=== PATIENT | female | born 2000 | race Caucasian/White ===

== ENCOUNTER 2020-10-22 13:08 | Emergency (ER) | payer BC, SELFPAY ==
--- NOTE | 2020-10-22 13:14 | ED.GENADULT ---
HPI - General Adult General Chief complaint: Unspecified Stated complaint: HEADACHE/TREMOR IN R ARM/RIB & LOW ABD PAIN Time Seen by Provider: 10/22/20 13:14 Source: patient Mode of arrival: ambulatory Limitations: no limitations History of Present Illness HPI narrative: 20-year-old female patient presents to the [facility] with complaints of a headache and abdominal pain for the past week. Patient states that the headache starts in the base of the skull and moves up toward the right side of the forehead. Patient states that she has been taking ibuprofen for this and it has relieved some of it at times. 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 Patient denies any vision changes, lightheadedness or dizziness. Pt also c/o lower abdominal pain that has bee constant for the past week, with epigastric pain and nausea after eating. Pt rates her pain 6/10 at this time. Patient denies any fevers, vomiting or diarrhea. Patient states she still does have her appendix and her gallbladder. Patient states last normal bowel movement was yesterday. Related Data Home Medications Medication Instructions Recorded Confirmed No Home Medications 10/22/20 10/22/20 Allergies Allergy/AdvReac Type Severity Reaction Status Date / Time No Known Allergies Allergy Verified 10/22/20 13:20 Review of Systems Review of Systems: Narrative: CONSTITUTIONAL: Denies fever, chills, or sweats. EYES: Denies visual changes, redness, or discharge. ENT: Denies rhinorrhea, congestion, sore throat, or otalgia. CARDIOVASCULAR: Denies chest pain, palpitations, or edema. RESPIRATORY: Denies cough or dyspnea. GASTROINTESTINAL: Positive lower abdominal pain x1 week, positive epigastric pain and nausea, denies vomiting, or diarrhea. GENITOURINARY: Denies dysuria or hematuria. SKIN: Denies rash or itching. MUSCULOSKELETAL: Denies back pain, joint pain, or myalgia. NEUROLOGIC: Positive intermittent headache x1 week, denies numbness, or weakness. PSYCHIATRIC: Denies anxiety or depression. PMFSH Comments At the time of my signature I agree with nursing past medical history, surgical, social, and family history. There is no relevant family history pertinent to the presenting complaint. Exam Narrative: Exam Narrative: GENERAL: Well-appearing, well-nourished, and in no acute distress. HEAD: Normocephalic, atraumatic. EYES: PERRLA and EOMI. ENT: Nares clear, no rhinorrhea or epistaxis. Mucous membranes moist. NECK: Supple. No lymphadenopathy CHEST: Clear to auscultation. No respiratory distress. HEART: Regular rate and rhythm. No murmur heard. Normal peripheral pulses. ABDOMEN: Soft, flat, nondistended. No guarding, rebound tenderness, or rigid. Patient has tenderness noted to the right upper quadrant, right lower quadrant and left lower quadrant on palpitation. No pulsatilla masses. Hyperactive bowel sounds present in all four quadrants. No organomegaly. Negative Chauhan?s sign. No periumbicial tenderness. No Supra public tenderness or distension. Good femoral pulses bilaterally. No hernia noted. No scars or surface trauma. EXTREMITIES: Normal range of motion. No edema. SKIN: Warm, dry, no rash. NEURO: Alert and oriented x4, GCS 15. Cranial nerves II through XII grossly intact. No focal neurological deficits. Normal muscle strength and tone. Normal deep tendon reflexes. Negative Babinski, normal finger to nose coordination he had normal heel to reyes glide. Speech is clear. Normal gait. Negative Romberg and no pronator drift Course Vital Signs Vital signs: Vital Signs Temperature 37.7 C H 10/22/20 13:21 Pulse Rate 102 H 10/22/20 13:21 Respiratory Rate 20 10/22/20 13:21 Blood Pressure 124/75 10/22/20 13:21 Pulse Oximetry 100 10/22/20 13:21 Temperature 37.7 C H 10/22/20 13:21 Pulse Rate 102 H 10/22/20 13:21 Respiratory Rate 20 10/22/20 13:21 Blood Pressure
[2020-10-22 13:21] VITALS: BP 124/75; PULSE 102; RESP 20; TEMP 37.7; O2SAT 100
== END 2020-10-22 14:10 | disposition short-term general hospital (02) ==
PROVIDERS: Emergency Provider Nurse Practitioner Family
DX: R10.31 Right lower quadrant pain (principal); R10.32 Left lower quadrant pain; R10.11 Right upper quadrant pain; G44.209 Tension-type headache, unspecified, not intractable; Z20.822 Contact with and (suspected) exposure to COVID-19
CPT/HCPCS: 87426; 99213; C9803; G0463

== ENCOUNTER 2020-10-22 14:14 | Emergency (ER) | payer BC, MEDICAID, SELFPAY ==
--- NOTE | ~2020-10-22 | CT_ITS ---
EXAMINATION: CT abdomen pelvis w con INDICATION: Right lower quadrant pain TECHNIQUE: Computed tomographic images of the abdomen and pelvis were obtained after the administrati on of 100 cc of Omnipaque 350 intravenous contrast. The dose-length product (DLP) was 230.64 mGy-cm. Automated exposure control and iterative reconstruction technique were employed. COMPARISON: None available FINDINGS: The lung bases are clear. The heart size is normal. The liver, spleen, pancreas, gallbladde r, and adrenal glands are normal. The right kidney is unremarkable. A 7 mm hypoattenuating lesion of the left mid kidney is too small to characterize but likely represents a cyst. No pathologically enla rged abdominal or pelvic lymph nodes are identified. The appendix is difficult to discretely identifi ed however, no dilated tubular structure is identified in the pelvis. There is a corpus luteum of the right ovary. A small volume of free fluid is present in the pelvis. IMPRESSION: 1. No CT correlate for the patient's symptoms. Although the appendix is not definitely identified, no dilated appendix is seen. 2. Small volume of free fluid in the pelvis which could be physiologic or due to ruptured ovarian cys t. Reviewed, dictated and finalized at location A. EXPANDER IMPRESSION: 1. No CT correlate for the patient's symptoms. Although the appendix is not def initely identified, no dilated appendix is seen. 2. Small volume of free fluid in the pelvis which could be physiologic or due t o ruptured ovarian cyst.
[2020-10-22 14:17] VITALS: BP 117/68; PULSE 92; RESP 18; TEMP 36.9; O2SAT 100
[2020-10-22 14:42] LABS: Basophils Percent Auto 0.3 % (0.2-1.2); Eosinophils Percent Auto 0.3 % (0-4.4); Hematocrit 40.8 % (37.0-47.0); Hemoglobin 14.1 g/dL (12.0-15.0); Immature Granulocyte Absolute 0.03 K/mm3 (0.00-0.031); Immature Granulocyte Percent A 0.3 % (0-0.5); Lymphocytes Absolute Auto 2.91 K/mm3 (0.9-3.2); Lymphocytes Percent Auto 32.2 % (18.3-44.2); Mean Corpuscular HGB Conc 34.6 g/dl (32-36); Mean Corpuscular Hemoglobin 29.9 pg (26-34); Mean Corpuscular Volume 86.4 fl (80-100); Mean Platelet Volume 9.6 fl (7.4-10.4); Monocytes Absolute Auto 0.7 K/mm3 (0.1-0.6); Neutrophils Absolute Auto 5.3 K/mm3 (1.3-6.7); Neutrophils Percent Auto 58.9 % (45.5-73.1); Platelet Count Result 279 k/mm3 (150-375); Red Blood Count 4.72 M/mm3 (4.2-5.4); Red Cell Distribution Width 12.1 % (11.5-14.5); White Blood Count 9.1 K/mm3 (4.5-10.0)
[2020-10-22 14:52] LABS: Alanine Aminotransferase 24 U/L (4-35); Albumin Level 4.1 g/dL (3.5-5.1); Alkaline Phosphatase 41 U/L (38-126); Anion Gap 8 mmol/L (8-16); Aspartate Amino Transferase 27 U/L (14-36); Bilirubin,Total 0.8 mg/dL (0.2-1.3); Blood Urea Nitrogen 8 mg/dL (7-17); Carbon Dioxide 23 mmol/L (22-30); Chloride 108 mmol/L (98-107); Estimated CRCL calculation 124 ml/min; Estimated Glomerular Filt Rate > 60; Glucose 96 mg/dL (65-105); Lipase 75 U/L (23-300); Potassium 4.2 mmol/L (3.4-5.0); Sodium 139 mmol/L (137-145)
[2020-10-22 14:57] LABS: Add Urine Microscopic? YES; Appearance Urine Cloudy (Clear); Bacteria Urine Trace /hpf; Bilirubin Urine Negative (Negative); Blood Urine Negative (Negative); Color Urine Yellow (Yellow); Glucose Urine UA Negative (Negative); Ketones Urine 1+ mg/dL (Negative); Leukocyte Esterase Ur Negative LEU/UL (Negative); Mucus Urine Rare /lpf; Nitrate Urine Negative (Negative); Protein Urine Negative (Negative); RBC Urine 0-2 /hpf (0-2); Specific Grav Ur 1.013 (1.001-1.035); Squamous Epithelial Cell Urine Many /hpf (Few); Urobilinogen Urine Negative mg/dL (<2.0); WBC Urine 0-3 /hpf
--- NOTE | 2020-10-22 17:33 | ED.GENADULT ---
HPI - General Adult General Chief complaint: Abdominal Pain Stated complaint: abd pain Time Seen by Provider: 10/22/20 17:11 Source: patient Mode of arrival: ambulatory Limitations: no limitations History of Present Illness HPI narrative: Patient is a 20-year-old female who presents with right lower quadrant abdominal pain that is been present now for the last several days gradually worsening each day patient notes aching pain in the right lower quadrant worse with activity and movement also notes nausea patient denies any vomiting diarrhea vaginal discharge bleeding or urinary symptoms Related Data Allergies Allergy/AdvReac Type Severity Reaction Status Date / Time No Known Allergies Allergy Verified 10/22/20 14:25 Review of Systems Review of Systems: All systems reviewed & are unremarkable except as noted in HPI and below PMFSH Social History Social History (Updated 10/22/20 @ 17:36 by Abhijeet Reynoso PA-C) Smoking status: Current every day smoker Gender identity (if verbalized by the patient): Female Exam Narrative: Exam Narrative: GENERAL: Well-appearing, well-nourished, and in no acute distress. HEAD: Normocephalic, atraumatic. EYES: PERRLA and EOMI. ENT: Nares clear, no rhinorrhea or epistaxis. Mucous membranes moist. CHEST: Clear to auscultation. No respiratory distress. No wheezes rales or rhonchi HEART: Regular rate and rhythm. No murmur heard. Normal peripheral pulses. ABDOMEN: Soft, right lower quadrant tenderness to palpation with voluntary guarding, nondistended EXTREMITIES: Normal range of motion. No edema. SKIN: Warm, dry, no rash. NEURO: No focal deficits. Alert and oriented x3. Cranial nerves II through XII grossly intact PSYCH: Normal mood and affect. Course Course Emergency Course: Patient presented with abdominal pain for the last several days no appendicitis noted given the findings coupled with the blood work patient likely having had a cyst that has ruptured patient will be treated symptomatically and advised to follow-up with primary care or gynecology for further evaluation and agrees with this plan Vital Signs Vital signs: Vital Signs Temperature 98.4 F 10/22/20 14:17 Pulse Rate 92 10/22/20 14:17 Respiratory Rate 18 10/22/20 14:17 Blood Pressure 117/68 10/22/20 14:17 Pulse Oximetry 100 10/22/20 14:17 Temperature 98.4 F 10/22/20 14:17 Pulse Rate 92 10/22/20 14:17 Respiratory Rate 18 10/22/20 14:17 Blood Pressure 117/68 10/22/20 14:17 Pulse Oximetry 100 10/22/20 14:17 Medical Decision Making MDM Narrative Medical decision making narrative: Patient in the room no distress aware of case findings treatment plan diagnosis agreeing to follow-up as directed or to return if symptoms worsen or concerns Vital Signs Vital Signs: Vital Signs Temperature 98.4 F 10/22/20 14:17 Pulse Rate 92 10/22/20 14:17 Respiratory Rate 18 10/22/20 14:17 Blood Pressure 117/68 10/22/20 14:17 Pulse Oximetry 100 10/22/20 14:17 Temperature 98.4 F 10/22/20 14:17 Pulse Rate 92 10/22/20 14:17 Respiratory Rate 18 10/22/20 14:17 Blood Pressure 117/68 10/22/20 14:17 Pulse Oximetry 100 10/22/20 14:17 Lab Data Result diagrams: 10/22/20 14:27 10/22/20 14:27 Labs: Lab Results 10/22/20 10/22/20 10/22/20 Range/Units 14:27 14:27 14:31 WBC 9.1 (4.5-10.0) K/mm3 RBC 4.72 (4.2-5.4) M/mm3 Hgb 14.1 (12.0-15.0) g/dL Hct 40.8 (37.0-47.0) % MCV 86.4 (80-100) fl MCH 29.9 (26-34) pg MCHC 34.6 (32-36) g/dl RDW 12.1 (11.5-14.5) % Plt Count 279 (150-375) k/mm3 MPV 9.6 (7.4-10.4) fl Immature Gran % (Auto) 0.3 (0-0.5) % Neut % (Auto) 58.9 (45.5-73.1) % Lymph % (Auto) 32.2 (18.3-44.2) % [place] % (Auto) 8.0 (2.6-8.5) % Eos % (Auto) 0.3 (0-4.4) % Baso % (Auto) 0.3 (0.2-1.2) % Lymph # (Auto) 2.91 (0.9-3.2) K/mm3 [place] # (Auto) 0.7 H
== END 2020-10-22 19:12 | disposition home or self-care (01) ==
PROVIDERS: Emergency Medicine; Emergency Provider Emergency Medicine
DX: R10.31 Right lower quadrant pain (principal); F17.200 Nicotine dependence, unspecified, uncomplicated
CPT/HCPCS: 36415; 74177; 80053; 81001; 81025; 83690; 85025; 99284; Q9967